=== PATIENT | female | born 1970 | race Two or more races ===

== ENCOUNTER 2022-05-21 17:00 | Emergency (ER) | payer BC, OTHER ==
[~2022-05-21] VITALS: Ht 165.1 cm; Wt 131.8 kg
[2022-05-21] MEDS ORDERED: LIDOCAINE 1% HCL (LOCAL ANESTH.) INJ 20ML MDV IJ ONE (19:30)
[2022-05-21] MEDS ORDERED: TETANUS-DIPTH-ACEL PERTUSSIS 0.5ML SYR Tdap IM ONE (19:30)
[2022-05-21 21:20] VITALS: BP 152/97
== END 2022-05-21 21:27 | disposition home or self-care (01) ==
LOC: EDBD 17:00 → ER 17:00
DX: S61.412A Laceration without foreign body of left hand, initial encounter (principal); S51.811A Laceration without foreign body of right forearm, initial encounter; Z88.5 Allergy status to narcotic agent; W26.0XXA Contact with knife, initial encounter; Y93.89 Activity, other specified; Y92.89 Other specified places as the place of occurrence of the external cause; Y99.8 Other external cause status
CPT/HCPCS: 12004; 90471; 90715; 99283; J2001